=== PATIENT | male | born 1945 | race Caucasian/White ===

== ENCOUNTER 2017-09-14 09:02 | Emergency (ER) | payer MEDICARE, BC ==
[2017-09-14 09:18] VITALS: BP 124/71
--- NOTE | 2017-09-14 09:31 | UC ---
HPI Febrile Illness - HPI Summary HPI Summary: 72 year old with cough. c/o deep cough, congestion, body aches, and night sweats x 4 days. [ End ] - History of Current Complaint Chief Complaint: UCGeneralIllness Time Seen by Provider: 09/14/17 09:21 Hx Obtained From: Patient Timing: Constant Initial Severity: Mild Current Severity: Moderate - Allergy/Home Medications Allergies/Adverse Reactions: Allergies Allergy/AdvReac Type Severity Reaction Status Date / Time No Known Allergies Allergy Verified 09/14/17 09:18 PMH/Surg Hx/FS Hx/Imm Hx Previously Healthy: Yes - Surgical History Surgical History: None - Family History Known Family History: Positive: None - Social History Occupation: Retired Lives: With Family Alcohol Use: Rare Substance Use Type: None Smoking Status (MU): Never Smoked Tobacco Review of Systems Constitutional: Fever, Chills, Fatigue ENT: Sore Throat Respiratory: Cough Musculoskeletal: Myalgia Is Patient Immunocompromised?: No All Other Systems Reviewed And Are Negative: Yes Physical Exam Triage Information Reviewed: Yes Appearance: Well-Appearing, No Pain Distress, Well-Nourished Vital Signs: Initial Vital Signs Temp 99.4 F 09/14/17 09:13 Pulse 109 09/14/17 09:13 Resp 18 09/14/17 09:13 BP 124/71 09/14/17 09:13 Pulse Ox 97 09/14/17 09:13 Vital Signs Reviewed: Yes Eye Exam: Normal ENT Exam: Normal ENT: Positive: Nasal congestion, Nasal drainage, TMs normal, Sinus tenderness Dental Exam: Normal Neck exam: Normal Neck: Positive: 1 Respiratory Exam: Normal Respiratory: Positive: Chest non-tender, Lungs clear, Normal breath sounds, No respiratory distress, No accessory muscle use Cardiovascular Exam: Normal Musculoskeletal Exam: Normal Neurological Exam: Normal Psychological Exam: Normal Skin Exam: Normal Course/Dx - Course Course Of Treatment: Appears viral at this time and flu like but with the symptoms starting 4 days ago we did not treat or check for flu. treat supportively and if sx persist or worsen then go to ED . He is aware and agreeable - Diagnoses Clinic Provider Diagnoses: Flu like illness Discharge - Discharge Plan Condition: Good Disposition: HOME Prescriptions: Benzonatate [Benzonatate 200 MG] 200 mg PO TID PRN #20 cap PRN Reason: Cough LevoCETirizine TAB (NF) [Xyzal TAB (NF)] 5 mg PO DAILY #14 tab Patient Education Materials: Upper Respiratory Infection (ED) Referrals: Tavo Avila MD [Primary Care Provider] - 4 Days
== END 2017-09-14 09:39 | disposition home or self-care (01) ==
LOC: UCCORT 09:02
DX: J11.1 Influenza due to unidentified influenza virus with other respiratory manifestations (principal)
CPT/HCPCS: 99212; G0463